=== PATIENT | female | born 1970 | race Caucasian/White ===

== ENCOUNTER → 2017-02-19 | Outpatient (CLI) | payer BC ==
--- NOTE | 2017-02-19 09:26 | REPMRS ---
Patient History The patient states she had a clinical breast exam in 02/12 Family history of colorectal cancer in father at age 50 or over. Took unspecified hormones for 11 years. Digital Woman Screen Mammo: February 19, 2017 - Exam #: [id number] Bilateral CC and MLO view(s) were taken. Technologist: Lynne Coyle, Technologist Prior study comparison: December 03, 2015, digital woman screen mammo performed at [facility] to [facility]. November 23, 2013, digital woman screen mammo performed at [facility] to [facility]. FINDINGS: There are scattered fibroglandular densities. There has been no change in the appearance of the mammogram from the prior studies. There is a mild amount of residual fibroglandular tissue which is fairly symmetric. There is no interval development of dominant mass, architectural distortion, or clustered microcalcification suggestive of malignancy. ASSESSMENT: BI-RADS/ACR category 1 mammogram. Negative. Recommendation Routine screening mammogram in 1 year (for women over age 40). This mammogram was interpreted with the aid of an FDA-approved computer-aided dectection system. Electronically Signed By: Jose Stanton MD 02/19/17 0919
== END ==
LOC: M WHC 08:15
PROVIDERS: ATTEND Nurse Practitioner Women's Health
DX: Z12.31 Encounter for screening mammogram for malignant neoplasm of breast (principal)

== ENCOUNTER → 2017-02-19 | Outpatient (REF) | payer BC | LOC: M SFHCWAGY 08:32 | PROVIDERS: ATTEND Nurse Practitioner Women's Health | DX: Z12.4 Encounter for screening for malignant neoplasm of cervix (principal) ==

== ENCOUNTER → 2018-03-10 | Outpatient (REF) | payer BC | LOC: M SFHCWAGY 15:50 | DX: Z12.4 Encounter for screening for malignant neoplasm of cervix (principal) | CPT/HCPCS: 88142 ==

== ENCOUNTER → 2019-10-17 | Outpatient (CLI) | payer BC ==
--- NOTE | 2019-10-17 17:36 | REPMRS ---
Patient History The patient states she had a clinical breast exam in 09/2019. Family history of colorectal cancer at age 50 or over in father. Took unspecified hormones for 11 years. 3D TOMOSYNTHESIS WAS PERFORMED. [facility] lifetime risk for breast cancer is 8.8%. Digital Woman Screen Mammo: October 17, 2019 - Exam #: [id number] Bilateral CC and MLO view(s) were taken. Technologist: Emma Haro, Technologist Prior study comparison: March 10, 2018, digital woman screen mammo performed at [facility]. February 19, 2017, digital woman screen mammo performed at [facility]. FINDINGS: The breast tissue is heterogeneously dense. This may lower the sensitivity of mammography. There has been no change in the appearance of the mammogram from the prior studies. There is a moderate amount of residual fibroglandular tissue which is fairly symmetric. There is no interval development of dominant mass, areas of architectural distortion, or clustered microcalcification typical of malignancy. Assessment: BI-RADS/ACR category 1 mammogram. Negative Mammogram. Recommendation Routine screening mammogram in 1 year (for women over age 40). This mammogram was interpreted with the aid of an FDA-approved computer-aided dectection system. Electronically Signed By: Jose Stanton MD 10/17/19 2254
== END ==
LOC: M WHC 15:03
PROVIDERS: ATTEND Nurse Practitioner Women's Health
DX: Z12.31 Encounter for screening mammogram for malignant neoplasm of breast (principal)

== ENCOUNTER → 2021-04-08 | Outpatient (REF) | payer BC | LOC: M SFHCWAGY 09:50 | PROVIDERS: ATTEND Nurse Practitioner Women's Health | DX: Z12.4 Encounter for screening for malignant neoplasm of cervix (principal); N84.1 Polyp of cervix uteri; Z77.9 Other contact with and (suspected) exposures hazardous to health | CPT/HCPCS: 87624; 88305; G0123 ==

== ENCOUNTER → 2021-04-08 | Outpatient (CLI) | payer BC ==
--- NOTE | 2021-04-08 16:57 | REP ---
INDICATION: SCR MAMMO. COMPARISON: Multiple the latest 10/17/2019 TECHNIQUE: Digital screening mammography was carried out bilaterally in the CC and MLO projections both 2D and 3D modalities and compared to the prior exams. By history, the patient has no complaints of a palpable breast abnormality or other significant breast complaints. FINDINGS: The breasts are unchanged in size and shape. Once again, scattered dense heterogenous somewhat nodular fibroglandular elements are seen bilaterally. In the left breast upper outer quadrant there is a potential lamont density. No other suspicious features are seen in either breast. The Volpara volumetric breast density pattern is b. IMPRESSION: BIRADS/ACR category 0. There is a potential lamont density in the left breast as described above. Diagnostic digital magnified spot-compression views left breast upper outer quadrant recommended in both CC and MLO projections along with diagnostic ultrasonography if needed. This patient's Tyrer-Cuzick lifetime breast cancer risk assessment score is 9.4%. This mammogram was interpreted with the aid of an FDA-approved computer-aided detection system. The patient states she had a clinical breast exam in 04/08/2021 . The patient letter being requested is M0. RECOMMENDATION: As above <Electronically signed by Thanh Solorio > 04/08/21 [id number]
== END ==
LOC: M WHC 15:05
PROVIDERS: ATTEND Nurse Practitioner Women's Health
DX: Z12.31 Encounter for screening mammogram for malignant neoplasm of breast (principal); R92.8 Other abnormal and inconclusive findings on diagnostic imaging of breast

== ENCOUNTER → 2021-05-02 | Outpatient (CLI) | payer BC ==
--- NOTE | 2021-05-02 15:09 | REP ---
INDICATION: ADDITIONAL VIEWS LT BREAST. COMPARISON: Multiple the latest prior screening examination of 04/08/2021 TECHNIQUE: Diagnostic digital magnified spot compression views of the left breast were obtained in the CC and MLO projections upper outer quadrant in the 2 o'clock position over potential lamont density suspected on the prior screening exam. In addition, ultrasonography of the same region was obtained using anatomical intelligence and shear wave elastography. FINDINGS: The diagnostic digital magnified spot-compression views show persistence of the tiny nodule seen best on the MLO view. Its density has decreased compared to the screening exam and is margins are somewhat better visualized. Diagnostic ultrasonography shows a 0.4 x 0.2 x 0.3 cm sized anechoic structure at the 2 o'clock position which exhibits posterior wall enhancement and increased through transmission. It has smooth distinct margins. Shear wave elastography was performed on this lesion shows low kPa values. IMPRESSION: BIRADS/ACR category 2 mammogram and left breast ultrasound. There is no mammographic evidence or ultrasonographic evidence of malignant alteration of the left breast. There is a simple cyst in the left breast as described above. The patient letter being requested is M1. RECOMMENDATION: Repeat screening mammography recommended 1 year (for women over 40). <Electronically signed by Thanh Solorio > 05/02/21 [id number]
== END ==
LOC: M WHC 13:17
PROVIDERS: ATTEND Nurse Practitioner Women's Health
DX: R92.2 Inconclusive mammogram (principal)

== ENCOUNTER → 2021-08-13 | Outpatient (CLI) | payer BC | LOC: M LABSMTC 10:45 | PROVIDERS: ATTEND Anesthesiology | DX: Z01.812 Encounter for preprocedural laboratory examination (principal); Z20.822 Contact with and (suspected) exposure to COVID-19 ==

== ENCOUNTER 2021-08-18 11:07 | Day surgery (SDC) | payer BC ==
[~2021-08-18] VITALS: Ht 157.5 cm; Wt 98.0 kg
[~2021-08-18 11:07] MED LIST: LIDOCAINE 2% 100MG/5ML SDV (FOR ANES.) As Ordered ONE; NS 1,000 ML IV ONE; propofoL 200 MG/20 ML VIAL As Ordered ONE
--- NOTE | 2021-08-18 14:51 | ROOR ---
Patient Name: Arelis Salcedo Procedure Date: 08/18/2021 2:29 PM Date of : 1970 Age: 50 Room: [facility] Gender: Female Note Status: Finalized Procedure: Colonoscopy Indications: Screening in patient at increased risk: Family history of 1st-degree relative with colorectal cancer Providers: Jimi Francois MD Referring MD: JANY ZURITA MD Requesting Provider: Medicines: Monitored Anesthesia Care Complications: No immediate complications. Procedure: Pre-Anesthesia Assessment: - The heart rate, respiratory rate, oxygen saturations, blood pressure, adequacy of pulmonary ventilation, and response to care were monitored throughout the procedure. The Colonoscope was introduced through the anus and advanced to 5 cm into the ileum. The colonoscopy was performed without difficulty. The patient tolerated the procedure well. The quality of the bowel preparation was good. Findings: The perianal and digital rectal examinations were normal. Three sessile polyps were found in the sigmoid colon. The polyps were 3 to 5 mm in size. These polyps were removed with a cold snare. Resection and retrieval were complete. A 8 mm polyp was found in the mid ascending colon. The polyp was semi-sessile. The polyp was removed with a cold snare. Resection and retrieval were complete. The exam was otherwise normal throughout the examined colon. Impression: - Three 3 to 5 mm polyps in the sigmoid colon, removed with a cold snare. Resected and retrieved. - One 8 mm polyp in the mid ascending colon, removed with a cold snare. Resected and retrieved. - The examination was otherwise normal. Recommendation: - Repeat colonoscopy in 3 years for surveillance. Procedure Code(s): --- Professional --- 73897, Colonoscopy, flexible; with removal of tumor(s), polyp(s), or other lesion(s) by snare technique Diagnosis Code(s): --- Professional --- Z80.0, Family history of malignant neoplasm of digestive organs K63.5, Polyp of colon CPT copyright 2019 [employer]. All rights reserved. The codes documented in this report are preliminary and upon pantry steward/stewardess review may be revised to meet current compliance requirements. Jimi Francois MD Jimi Francois MD 08/18/2021 2:50:53 PM Electronically signed by Jimi Francois MD Number of Addenda: 0 Note Initiated On: 08/18/2021 2:29 PM Estimated Blood Loss: Estimated blood loss: none.
[2021-08-18 15:11] VITALS: BP 134/87
== END 2021-08-18 15:13 | disposition home or self-care (01) ==
LOC: M OPP 11:07
PROVIDERS: ATTEND Internal Medicine Gastroenterology
DX: Z12.11 Encounter for screening for malignant neoplasm of colon (principal); Z80.0 Family history of malignant neoplasm of digestive organs; K63.5 Polyp of colon; Z80.1 Family history of malignant neoplasm of trachea, bronchus and lung

== ENCOUNTER → 2023-11-18 | Outpatient (CLI) | payer BC | LOC: M WHC 11:22 | PROVIDERS: ATTEND Nurse Practitioner Family | DX: Z12.31 Encounter for screening mammogram for malignant neoplasm of breast (principal) ==

== ENCOUNTER → 2023-11-18 | Outpatient (REF) | payer BC | LOC: M SFHCWAGY 16:07 | PROVIDERS: ATTEND Nurse Practitioner Family | DX: Z12.4 Encounter for screening for malignant neoplasm of cervix (principal) ==

== ENCOUNTER → 2024-01-03 | Outpatient (REF) | payer BC | LOC: M SFHCWAGY 13:12 | PROVIDERS: ATTEND Nurse Practitioner Family | DX: Z12.4 Encounter for screening for malignant neoplasm of cervix (principal); R87.615 Unsatisfactory cytologic smear of cervix | CPT/HCPCS: 87624; G0123 ==

== ENCOUNTER → 2025-11-15 | Outpatient (CLI) | payer BC | LOC: M WHC 08:36 | PROVIDERS: ATTEND Nurse Practitioner Family | DX: Z12.31 Encounter for screening mammogram for malignant neoplasm of breast (principal); R92.323 Mammographic fibroglandular density, bilateral breasts ==